=== PATIENT | female | born 1960 | race Caucasian/White ===

== ENCOUNTER 2024-12-05 10:30 | Emergency (ER) | payer MEDICARE, BC, SELFPAY ==
--- NOTE | 2024-12-05 10:38 | ED_ITS ---
HPI - Ear Problem General Chief complaint: Ear Stated complaint: RT Ear Pain Time Seen by Provider: 12/05/24 10:36 Source: patient Mode of arrival: ambulatory Limitations: no limitations History of Present Illness HPI Narrative: Here for right ear pain. She reports a history of 1.5 days of right ear pressure. She also reports feeling muffled hearing in the right ear. She has a history of bilateral ear tubes placed about 1 and half years years ago. She reports having a right-sided headache yesterday. She no longer has a headache. She also reports history of a recent right tonsil stone over the last several days. She denies any fever. She denies any nausea vomiting. She denies any cough or congestion. She reports recently coming to town to take care of a sick parent. Related Data Home Medications ?Medication ?Instructions ?Recorded ?Confirmed ?Last Taken ?Type escitalopram oxalate 10 mg tablet mg 12/05/24 Unknown History omeprazole 20 mg capsule,delayed mg 12/05/24 Unknown History release trazodone 150 mg tablet mg 12/05/24 Unknown History Allergies Allergy/AdvReac Type Severity Reaction Status Date / Time No Known Allergies Allergy Verified 12/05/24 10:41 Review of Systems Review of Systems: CONSTITUTIONAL: Denies fever, chills, or sweats. EYES: Denies visual changes, redness, or discharge. ENT: Denies rhinorrhea or congestion. Denies otalgia, and reports instead feeling ear pressure. Reports recent tonsil stone on right. CARDIOVASCULAR: Denies chest pain, palpitations, or edema. RESPIRATORY: Denies cough or dyspnea. GASTROINTESTINAL: Denies abdominal pain, nausea, vomiting, or diarrhea. GENITOURINARY: Denies dysuria or hematuria. SKIN: Denies rash or itching. MUSCULOSKELETAL: Denies back pain, joint pain, or myalgia. NEUROLOGIC: Denies numbness or weakness. Reports headache yesterday, but denies ONEILL today. PSYCHIATRIC: Denies anxiety or depression. All other systems reviewed are negative, except as documented in HPI. Exam Narrative: GENERAL: This is a well-nourished, well-developed patient, in no apparent distress. HEAD: normocephalic, atraumatic. EYES: Sclera clear/white. EARS: External ears normal, auditory canals clear and without drainage, TMs opacified with bilateral TM tubes in place. +Clear fluid behind ear drums bilaterally. NOSE: External nose normal with no obvious nasal discharge, nares without redness, no rhinorrhea. THROAT: Mucous membranes moist, posterior pharynx clear. NECK: Trachea midline. CARDIOVASCULAR: Regular rate and rhythm without murmurs, gallops, or rubs. RESPIRATORY: Clear to auscultation. Breath sounds equal bilaterally. No wheezes, rales, or rhonchi. SKIN: warm, Dry, intact with no suspicious lesions or rash, good texture and tur gor. NEURO: awake, alert, and oriented to person, place and time. There were no obvious focal neurologic abnormalities. EXTREMITIES: No joint tenderness, effusion, or edema noted. Course Course Emergency Course: Patient is aware of diagnosis, understands and agrees to treatment plan. Anticip atory guidance was given. Patient agrees to follow-up as directed and is aware of reasons to seek care at the emergency department. Level of Care: Express Care Visit Vital Signs Vital signs: Vital Signs Temperature 36.2 C L 12/05/24 10:41 Pulse Rate 73 12/05/24 10:41 Respiratory Rate 18 12/05/24 10:41 Blood Pressure 121/78 12/05/24 10:41 Pulse Oximetry 99 12/05/24 10:41 Oxygen Delivery Room Air 12/05/24 10:41 Temperature 36.2 C L 12/05/24 10:41 Pulse Rate 73 12/05/24 10:41 Respiratory Rate 18 12/05/24 10:41 Blood Pressure 121/78 12/05/24 10:41 Pulse Oximetry 99 12/05/24 10:41 Oxygen Delivery Room Air 12/05/24 10:41 Reviewed. Medical Decision Making MDM Narrative Medical decision making narrative: Here with ear pressure. TM is opacified with no erythema or edema. No fevers. Bilateral TM tubes in place. +Fluid level behind TMs. Vital Signs Vital Signs: Vital Signs Temperature 36.2 C L 12/05/24 10:41 Pulse Rate 73 12/05/24 10:41 Respiratory Rate 18 12/05/24 10:41 Blood Pressure 121/78 12/05/24 10:41 Pulse Oximetry 99 12/05/24 10:41 Oxygen Delivery Room Air 12/05/24 10:41 Temperature 36.2 C L 12/05/24 10:41 Pulse Rate 73 12/05/24 10:41 Respiratory Rate 18 12/05/24 10:41 Blood Pressure 121/78 12/05/24 10:41 Pulse Oximetry 99 12/05/24 10:41 Oxygen Delivery Room Air 12/05/24 10:41 Discharge Plan Discharge Clinical Impression: Allergic rhinitis Qualifiers: Allergic rhinitis trigger: unspecified Allergic rhinitis seasonality: seasonal Qualified Code(s): J30.2 - Other seasonal allergic rhinitis Patient Disposition: Home Condition: Stable Instructions: Antibiotic Form, Allergies (ED) Additional Instructions: You were diagnosed today with allergy symptoms. Start an oral antihistamine such as Zyrtec as directed on the packaging. You can also add daily Flonase as directed on the packaging. Both of these medications are available over the counter. Take medications as recommended today.? Follow printed instructions provided. Follow-up with primary care provider. Go to the ER for any worsening symptoms or concerns. 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
[2024-12-05 10:41] VITALS: BP 121/78; PULSE 73; RESP 18; TEMP 36.2; O2SAT 99
--- OUTSIDE RECORDS SUMMARY | 2024-12-05 11:55 | XMS_ITS ---
Author Organization [facility] Address [address] [place] [address] Care Team Providers Care Regulatory Product Manager Name Role Phone Jordan Christopher Primary Care Provider REASON FOR VISIT Cancel Appointment Request Encounters Encounter Location Date Provider Diagnosis [facility] [address] [place] [address] 12/04/2024 Jordan Christopher Plan Of Treatment Next Appt Details Provider Name:Jordan wadsworth, 01/02/2025 08:30:00 AM, [address] [place], [address], Provider Name:Jordan Kapadia Silvana wadsworth, 01/02/2025 11:00:00 AM, [address] [place], [address], Progress Notes * Alexandra WHEELER LDOB:[birth year] (64 yo F)Acc No.[id number]:12/04/2024 Patient: Aamir STARRAlexandra :1960 A ge:64 Y S ex:Female Address:[address] [place], [address] * true * Date: Generated for Printi ng/Faxing/eTransmitting on: 0 12/05/2024 11:55 AM CDT
--- OUTSIDE RECORDS SUMMARY | 2024-12-05 11:55 | XMS_ITS ---
Author Organization [facility] Address [address] [place] [address] Care Team Providers Care Aeronautical Test Engineer Name Role Phone Jordan Christopher Primary Care Provider REASON FOR VISIT r/s px-e Encounters Encounter Location Date Provider Diagnosis [facility] [address] [place] [address] 12/04/2024 Jordan Christopher Plan Of Treatment Next Appt Details Provider Name:Jordan wadsworth, 01/02/2025 08:30:00 AM, [address] [place], [address], Provider Name:Jordan wadsworth, 01/02/2025 11:00:00 AM, [address] [place], [address], Progress Notes * Alexandra WHEELER LDOB:[birth year] (64 yo F)Acc No.[id number]:12/04/2024 Patient: Aamir STARRAlexandra :1960 A ge:64 Y S ex:Female Address:[address] [place], [address] * true * Date: Generated for Printi ng/Faxing/eTransmitting on: 0 12/05/2024 11:55 AM CDT
--- OUTSIDE RECORDS SUMMARY | 2024-12-05 11:55 | XMS_ITS | Patient Health Record ---
Author Organization [facility] Address [address] [place] [address] Care Team Providers Care Drug Clerk Name Role Phone Jordan Christopher Primary Care Provider Enrico Alexandre Unavailable [phone] Gume Lim Unavailable [phone] Allergies No Known Allergies Results Component Value Reference Range Notes Urine Dipstick w/ microscopi c for symptoms Reviewed date:04/25/2024 09:24:07 AM Interpretation: Performing Lab:[address] [place] [address] [facility] Notes/Report: NONFASTING MG : 3D screening Bilateral Reviewed date:12/09/2023 10:04:25 AM Interpretation: Performing Lab: Notes/Report: TSH Reviewed date:12/10/2023 02:16:56 PM Interpretation: Performing Lab:[address] [place] [address] [facility] Notes/Report: FASTING LIPID PROFILE Reviewed date:12/10/2023 02:16:56 PM Interpretation: Performing Lab:[address] [place] [address] [facility] Notes/Report: FASTING COMPREHENSIVE PROFILE Reviewed date:12/10/2023 02:16:56 PM Interpretation: Performing Lab:[address] [place] [address] LAB Notes/Report: FASTING eGFR RESULTS NOT VALID FOR 17 YEARS OF AGE AND UNDER CBC (w/diff or w/auto diff) Reviewed date:12/10/2023 02:16:56 PM Interpretation: Performing Lab:[address] [place] [address] LAB Notes/Report: FASTING Urine Culture #[id number] Reviewed date:04/25/2024 09:24:07 AM Interpretation: Performing Lab:[facility] [id number] Notes/Report: Culture shows less than 10,000 colony forming units of bacteria per NONFASTING milliliter of urine. This colony count is not generally considered to be clinically significant. Result 1 Comment Urine Culture, Routine Final report Urine Dipstick w/ microscopi c for symptoms Reviewed date:04/11/2024 02:15:04 PM Interpretation: Performing Lab:[address] [place] [address] LAB Notes/Report: NONFASTING Urine Culture #[id number] Reviewed date:04/15/2024 05:47:01 PM Interpretation: Performing Lab:[id number] Notes/Report: S = Susceptible; I = Intermediate; R = Resistant Cefazolin <=4 ug/mL NONFASTING P = Positive; N = Negative Cefazolin with an NORMA <=16 predicts susceptibility to the oral agents MICS are expressed in micrograms per mL cefaclor, cefdinir, cefpodoxime, cefprozil, cefuroxime, cephalexin, Antibiotic RSLT#1 RSLT#2 RSLT#3 RSLT#4 and loracarbef when used for therapy of uncomplicated urinary tract Amoxicillin/Clavulanic Acid S infections due to E. coli, Klebsiella pneumoniae, and Proteus Ampicillin R mirabilis. Cefepime S Greater than 100,000 colony forming units per mL Ceftriaxone S Cefuroxime S Ciprofloxacin S Ertapenem S Gentamicin S Imipenem S Levofloxacin S Meropenem S Nitrofurantoin S Piperacillin/Tazobactam S Tetracycline S Tobramycin S Trimethoprim/Sulfa S Antimicrobial Susceptibility Comment Result 1 Klebsiella pneumoniae Urine Culture, Routine Final report Reason For Referral Reason NCT/EMG left upper e xtremity Diagnosis 1 Hand numbness (R20.0 ) Referral Organization [facility] Referring Provider First Name Jordan Referring Provider Last Name Mable ralph Referring Provider Speciality Family Med icine Referred Provider Justin West Referred Provider Specialty Physical Med icine and Rehabilitation Clinical Notes Chaya Sterling 10:07:55 AM >Order, demographic information, ins card copy faxed to Dr. West office. Referral Priority Routine Reason call 01/11 faxed 01/04 EVAL AND TREAT [facility] - Insurance referral not required - ADW 01/12/2024 Diagnosis 1 Carpal tunnel syndro me, left (G56.02) Diagnosis 2 Ulnar nerve compress ion, left (G56.22) Referral Organization [facility] Referring Provider First Name Jordan Referring Provider Last Name Mable loree Referring Provider Speciality Family Med benjamin Referred Provider Prince Rodriguez Referred Provider Specialty Orthopedic S urgery General Notes Libia Carreno 02:28:08 PM >[employer] - Insurance referral not required Clinical Notes Romelia Clark 02:13:59 PM >Referral faxed to [phone]., Romelia Clark 01/12/2024 02:20:51 PM >LVM for pt providing Dr. Frias's contact information to call and schedule appt. Referral Priority Routine Medications Medication SIG (Take, Route, Frequency, Duration) Notes Start Date End Date Status Ciprofloxacin HCl 500 MG 1 tablet Orally every 12 hrs for 7 days 04/11/2024 Active Calcium + D3 TAKE DIRECTED 1 tablet with a meal Orally Once a day Active Turmeric 450 mg 1 PO Qd Acti ve Escitalopram Oxalate 10 MG TAKE 1 TABLET BY MOUTH DAILY for 90 Active Estradiol 0.1 MG/GM APPLY VAGINALLY THRE E TIMES PER WEEK for 90 Active traZODone HCl 150 MG TAKE A HALF TABLET BY MOUTH DAILY for 90 Active Gentamicin Sulfate 0.3 % 1 drop into aff ected eye Ophthalmic every 4 hrs for 5 days 02/12/2024 Active Atorvastatin Calcium 20 MG TAKE 1 TABLET BY MOUTH DAILY for 30 days Active Omeprazole 20 MG TAKE ONE TO TWO CAPS ULES BY MOUTH EVERY DAY for 45 Active Immunizations Vaccine Route Administration Date Status Comme nts Influenza IM Intramuscular 06/11/2020 Administered Social History Tobacco Use: Social History Observation Description Date Details (start date - stop date) Never Smoker NA - NA Tobacco Use/Smoking Question Answer Notes Status: nonsmoker Problems Problem Type SNOMED Code ICD Code Onset Dates Problem Status W/U Status Risk Notes Problem 94311649 Dysuria (R30.0) Active confirmed Problem Hyperlipidemia (76979253) Hyperlipidemia (E78.5) Active confirmed Problem Anxiety disorder (707638852) Anxiety disorder (F41.9) Active confirmed Problem Polyp of colon (disorder) (76759762) Colon polyps (K63.5) Active confirmed Problem Hearing loss (08598303) Decreased hearing of both ears (H91.93) Active confirmed Problem 178493914 Elevated alkalin e phosphatase level (R74.8) Active confirmed Problem Solitary pulmonary nodule (500457812) Pulmonary nodule, right (R91.1) Active confirmed Problem 018353495019200 Carpal tunnel syndrome, left (G56.02) Active confirmed Problem Atrophy of vagina (065087916) Vaginal atrophy (N95.2) Active confirmed Problem 117520340 Gall stones (K80.20) Active confirmed Problem 942353480 Bacterial conjunctivitis (H10.9) Active confirmed Problem Diverticulitis of colon (790658942) Acute diverticulitis (K57.92) Active confirmed Problem Bilateral hearing loss (46342454) Hearing loss associated with syndrome of both ears (H91.8X3) Active confirmed Problem 09254323 Loss of smell (R43.0) Active confirmed Problem 513903416047403 Ulnar nerve compression, left (G56.22) Active confirmed Problem COVID-19 (026908515) COVID-19 (U07.1) Active confirmed Vital Signs Heart Rate 87 /min 04/11/2024 Blood pressure diastolic 76 mm Hg 04/11/2024 Oximetry 98 % 04/11/2024 Height 60 in 04/11/2024 Blood pressure systolic 124 mm Hg 04/11/2024 Weight 157.6 lbs 04/11/2024 BMI 30.78 kg/m2 04/11/2024 Encounters Encounter Location Date Provider Diagnosis [facility] [address] [place] [address] 01/05/2024 Jordan Christopher [facility] [address] [place] [address] 03/10/2024 Jordan Christopher [facility] [address] [place] [address] 04/15/2024 Jordan Christopher Dysuria R30.0 [facility] [address] [place] [address] 01/07/2024 Jordan Christopher [facility] [address] [place] [address] 02/17/[address] [facility] [address] [place] [address] 02/17/[address] [facility] [address] [place] [address] 02/17/[address] [facility] [address] [place] [address] 02/17/[address] [facility] [address] [place] [address] 04/11/[address] [facility] [address] [place] [address] 04/11/2024 Jordan Christopher [facility] [address] [place] [address] 12/04/2024 Jordan Christopher [facility] [address] [place] [address] 12/04/[address] [facility] [address] [facility] [place] [address] 12/04/2024 Jordan Christopher [facility] [address] [place] [address] 12/04/2024 Jordan Christopher [facility] [address] [place] [address] 12/09/2023 Jordan Christopher Wellness examinatio n Z00.00 ; Hand numbness R20.0 and Dupuytren's contracture of both hands M72.0 [facility] [address] [place] [address] 04/11/2024 Jordan Christopher Dysuria R30.0 [facility] [address] [place] [address] 04/21/2024 Jordan Christopher Dysuria R30.0 [facility] [address] [place] [address] 12/09/2023 Jordan Silvanaermelinda Breast cancer screening Z12.31 [facility] [address] [place] [address] 02/12/2024 Gume Lim Bacterial conjunctivitis H10.9 [facility] [address] [place] [address] 02/09/2024 Enrico Alexandre Assessments Encounter Date Diagnosis (ICD Code) Assessment Notes Treatment Notes Treatment Clinical Notes Section Notes 12/09/2023 Wellness examination (ICD-10 - Z00.00) continue with healthy diet and regular exercise activity. Discussed weight loss and she is going to work on this. Also she is up-to-date on her screening colonoscopy and is getting her screening mammogram today. She has had her shingles vaccine and said even had a pneumonia vaccine maybe 3 years ago but thought she had a reaction to 12/09/2023 Hand numbness (ICD-10 - R20.0) patient with numbness in her left thumb and index finger that is getting more persistent over the last 6 weeks. No known injury. She does have history of Dupuytren's contractures of both hands. Will go ahead and get NCT and a electromyelogram of the left upper extremity. Also discussed referral to Orthopedics for discussion on her Dupuytren's as some new treatments have emerged 12/09/2023 Breast cancer screening (ICD-10 - Z12.31) 02/12/2024 Bacterial conjunctivitis (ICD-10 - H10.9) Will treat with gentamicin eye drops. Pt to f/u PRN 04/11/2024 Dysuria (ICD-10 - R30.0) continue to push fluids. Will await urine culture. Discussed if she has 6 episodes in the next year that this could be an indication for preventative medications and will readdress in the future if needed. Meanwhile since she said most of these occur after intercourse to make sure she is getting up and urinating afterwards and make sure she drinks plenty of fluids 04/15/2024 Dysuria (ICD-10 - R30.0) 04/21/2024 Dysuria (ICD-10 - R30.0) 12/09/2023 Dupuytren's contracture of both hands (ICD-10 - M72.0) Plan Of Treatment Pending Test Test Name Order Date MG : 3D screening Bilateral 08/12/2021 Next Appt Details Provider Name:Jordan wadsworth, 01/02/2025 08:30:00 AM, [address] [place], [address], Provider Name:Jordan wadsworth, 01/02/2025 11:00:00 AM, [address] [place], [address], Insurance Providers Payer Name Payer Address Payer Phone Subscriber Number Group Number Insured Name Patient Relationship to Insured Coverage Start Date Coverage End Date [facility] [address] [place] [address] [phone] [id number] Toan Wheeler Spouse - patient is the spouse of the insured 0 Medications Administered Medication Instructions Date of Administration Dosage Notes DEPO-Medrol 02/09/2024 120 mg Medical (General) History Medical History History ICD Code Hyperlipidemia gastroesophogeal reflux disease colon polyp-last colonoscopy was 2014 surgical removed/donated left kidney anxiety disorder insomnia diverticulitis Surgical History Surgery Date(Month/Year) left nephrectomy for donation 2009 TOTAL KNEE REPLACEMENT 2011 PARTIAL HYSTERECTOMY 2018 Colonoscopy,,polyp x1,repeat in 5 years 08/05
--- OUTSIDE RECORDS SUMMARY | 2024-12-05 11:55 | XMS_ITS | Data Portability ---
Author Organization [facility] - Dermatology [facility] OFFICE Address [address] [facility] [address] [place] [address] Assessment Encounter Date Assessment Date Assessment LastModified by Organization Details LastModified Time 05/20/2021 05/20/2021 1. Photoaging of skin, benign nevi, seborrheic keratosis, ochoa angiomas - No atypia seen on exam. Continue sun protection/sun screen use, monthly self skin exams, and report changes. Follow up in one year, sooner if needed. [email or web address] Not available 05/20/2021 10:19:57 05/20/2022 05/20/2022 1. Photoaging of skin, benign nevi, seborrheic keratosis, ochoa angiomas - No atypia seen on exam. Continue sun protection/sun screen use, monthly self skin exams, and report changes. 2. Irritated skin tags - Treatment options with possible adverse effects were discussed. Patient would like to proceed with cryotherapy. 2 lesions were treated with liquid nitrogen. Follow up in 4 weeks if retreatment is needed. Follow up in one year, sooner if needed. Not available 05/20/2022 10:18:00 05/25/2023 05/25/2023 1. Photoaging of skin, benign nevi, seborrheic keratosis, ochoa angiomas - No atypia seen on exam. Continue sun protection/sun screen use, monthly self skin exams, and report changes. Follow up in one year, sooner if needed. Not available 05/25/2023 09:17:00 02/29/2024 02/29/2024 1. Photoaging of skin - Continue sun protection/sun screen use, monthly self skin exams, and report changes. 2. Comedones - Benign lesions, reassurance was given. Treatment options were discussed. Patient prefers to continue observation for changes and will notify our office if she would like extractions. Patient has routine annual skin exam on 05-30-24, sooner if needed. [email or web address] Not available 03/02/2024 15:53:55 05/30/2024 05/30/2024 1. Photoaging of skin, benign nevi, seborrheic keratosis, ochoa angiomas - No atypia seen on exam. Continue sun protection/sun screen use, monthly self skin exams, and report changes. 2. Actinic keratosis - 1 lesion located on right forehead was treated with liquid nitrogen. Reviewed possible adverse effects of treatment. Continue sunscreen use/sun protection as directed. Follow up in one year, sooner if needed. Not available 05/30/2024 09:16:43 Plan of Treatment Reminders Order Date Submit Date Provider Last Modified By Organization Details Last Modified Time Details Appointments ESTABLISH ED PATIENT 10 2024 08:00A M JUDY Gonzalez Not available Not available Not available Lab None recorded. Referral None recorded. Procedures None recorded. Surgeries None recorded. Imaging None recorded. Medication Orders None recorded. Patient TargetsNo targets recorded. Patient InstructionsNo instructions recorded. Reason for Referral None Reported. Problems No Known Problems Procedures Surgical History Date Name Laterality Status Provider Name and Address Organization Details Recorded Time 04/04/20 19 DS Direct [id number] consultation [facility] 04/04/2019 13:53:03 04/02/20 18 DS Surgery - Shave - [facility] 04/02/2018 16:52:39 Joint Replacement or Orthopedic Procedure/Surger y completed Sarah Oneill [facility] 03/30/2017 15:53:47 Remove kidney open [facility] 04/02/2018 16:48:21 Knee arthroscopy/surg selena [facility] 04/02/2018 16:48:39 Unlisted px hands/fingers [facility] 04/02/2018 16:48:46 Unlisted px foot/toes completed [facility] [place] - [facility] 04/02/2018 16:48:54 Imaging Results None recorded. Procedure Notes None recorded. Medical Equipment None Reported. Allergies No known drug allergies Medications Name Sig Start Date Stop Date Status Note LastModified by Organization Details LastModified Time cyclobenzaprine 10 mg tablet active Not Available Not Available Not Available amoxicillin 500 mg capsule active Not Available Not Available N ot Available prednisone 10 mg tablet active Not Available Not Available Not Available atorvastatin 20 mg tablet active Not Available Not Available No t Available azithromycin 250 mg tablet active Not Available Not Available No t Available fluconazole 150 mg tablet active Not Available Not Available No t Available hydrocodone 5 mg-acetaminophen 325 mg tablet active Not Available Not Availabl e Not Available prednisone 20 mg tablet active Not Available Not Available Not Available niacin ER 500 mg tablet,extended release 24 hr active Not Available Not Availabl e Not Available metronidazole 500 mg tablet active Not Available Not Availabl e Not Available ciprofloxacin 500 mg tablet active Not Available Not Availabl e Not Available sulfamethoxazole 800 mg-trimethoprim 160 mg tablet active Not Available Not Availabl e Not Available hydrocodone 10 mg-acetaminophen 325 mg tablet active Not Available Not Availabl e Not Available spironolactone 25 mg tablet active Not Available Not Available Not Available bupropion HCl 100 mg tablet 04/04 completed Not Available Not Available Not Available gentamicin 0.3 % eye drops active Not Available Not Available No t Available baclofen 10 mg tablet active Not Available Not Available Not Available cephalexin 500 mg capsule active Not Available Not Available N ot Available trazodone 150 mg tablet active Not Available Not Available Not Available polymyxin B sulfate 10,000 unit-trimethopri m 1 mg/mL eye drops 04/04 completed Not Available Not Available Not Available omeprazole 20 mg capsule,delayed release active Not Available Not Available Not Available estradiol 0.01% (0.1 mg/gram) vaginal cream active Not Available Not Availabl e Not Available methylprednisolo ne 4 mg tablets in a dose pack active Not Available Not Availab le Not Available albuterol sulfate HFA 90 mcg/actuation aerosol inhaler active Not Available Not Availa ble Not Available ondansetron 4 mg disintegrating tablet active Not Available Not Available Not Available cefdinir 300 mg capsule active Not Available Not Available Not Available amoxicillin 875 mg-potassium clavulanate 125 mg tablet active Not Available Not Available No t Available neomycin-polymyx in-hydrocort 3.5 mg-10,000 unit/mL-1 % ear drops,susp active Not Available Not Available N ot Available escitalopram 10 mg tablet active Not Available Not Available No t Available escitalopram 20 mg tablet 04/04 completed Not Available Not Available Not Available Premarin 0.625 mg/gram vaginal cream active Not Available Not Available Not Available nitrofurantoin monohydrate/macr ocrystals 100 mg capsule active Not Available Not Available Not Available aspirin active Not Available Not Avail able Not Available Fish Oil active Not Available Not Avai lable Not Available diclofenac 1 % topical gel active Not Available Not Available Not Available Fluarix Quad 4676-3312 (PF) 60 mcg (15 mcg x 4)/0.5 mL IM syringe 04/04 completed Not Available Not Available Not Available Vitals Date Recorded Body height Body mass index (BMI) Body weight Provider Name and Address Organization Details Last Updated DateTime 05/30/2024 153.67 cm 28.8 kg/m2 40129.86 g [facility] 05/30/2024 09:06:16 Social History None recorded. Functional Status None recorded. Mental Status None recorded. Family History Relationship Description Onset Age of this Age Resolved Age Notes LastModified by Organization Details LastModified Time Mother Basal cell carcinoma of skin tschrandt Not available 2017 16:47:51 Medical History Condition Response GERD/Acid Reflux/Indigestion Y Allergy - Reaction to Adhesives Y Lipid Disorder/Hyperlipidemia/High Shayla sterol Y Gynecological HistoryNo gynecological history recorded. Obstetrics History GPAL:G 0 P 0 0 0 0 Past Encounters Encounter ID Performer Location Encounter Start Date Encounter Closed Date Diagnosis/Indication Diagnosis SNOMED-CT Code Diagnosis ICD10 Code Diagnosis Note [id number] Nicole Morgan [facility] [address] [address] 03/26/2017 15:13:18 03/26/2017 15:55:50 [id number] Lisa Menendez [facility] [address] [address] 04/02/2018 09:41:44 04/02/2018 10:46:59 Skin - benign mole and nevus 139462684 D22.9 [id number] [address] [address] 04/04/2019 09:49:31 04/04/2019 10:15:02 [id number] [address]y [address] [place] [id number] 05/14/2020 09:53:04 05/14/2020 10:12:53 [id number] [facility] [address] [place] [address] 12/20/2020 09:01:08 12/27/2020 14:30:36 Alopecia 57123682 L65.9 [id number] Korey [address] [place] [id number] 05/20/2021 09:47:12 05/20/2021 10:02:47 [id number] [address]y [address] [place] [id number] 05/20/2022 09:42:55 05/20/2022 10:22:56 [id number] [address] [place] [id number] 05/25/2023 08:49:44 05/26/2023 13:31:15 [id number] [address] [place] [address] 02/29/2024 14:35:04 03/03/2024 10:27:34 [id number] [address] [place] [address] 05/30/2024 08:54:26 05/31/2024 11:23:26 Health Concerns Section Related Observation LastModified by Organization Detai ls LastModified Time None Recorded Concern Status LastModified by Organization Details LastModified Time None Recorded Advance Directives Directive None Recorded Payers Encounter Date Sequence Insurance Name Policy Number Policy Garcia Covered Member ID Garcia Member ID Guarantor Name 05/20/2021 1 [place] [place] [facility] EMPL[employer]EE PROGRAM (O) 113 Toan D Summer [id number] Alexandra L Summer 05/20/2022 1 [place] [place] [facility] [employer]EE [employer] (PPO) 113 Toan D Summer [id number] Alexandra L Summer 05/25/2023 1 [place] [place] [facility] [employer]EE PRO[employer] (PPO) 113 Toan D Summer [id number] Alexandra L Summer 02/29/2024 1 [place] [place] [facility] [employer]EE PRO[employer] (PPO) 113 Toan D Summer [id number] Alexandra L Summer 05/30/2024 1 [place] [employer] [place] [facility] [employer]EE PRO[employer] (PPO) 113 Toan D Summer [id number] Alexandra L Summer Notes Date Note Type Note Provider Name and Address Organization Details Recorded Time 05/20/2021 text/html 60 year old female presents today for her yearly skin exam. No personal or family history of skin cancer. No other skin concerns. Korey Lucas[address], [address], [facility] 05/20/2021 10:20:11 05/20/2022 text/html 61 year old female presents today for her yearly skin exam. The patient has irritated skin tags under her left armpit she would like treated. Lesions have grown thicker over time, itch, and catch on clothing causing soreness. No personal or family history of skin cancer. No other skin concerns. [facility] [address] [place], [address], [facility] 05/20/2022 10:23:39 05/25/2023 text/html 62 year old female presents today for her yearly skin exam. She has a thickened patch on her mid back and would like evaluation. It does not bother her, she just cannot see it. No personal or family history of skin cancer. No other skin concerns. Korey Lucas MARIANAUMA [address] [place], [address], [facility] 05/25/2023 09:31:05 02/29/2024 text/html 63 year old female here for an evaluation of itchy spots on her back. She states that she has had these for several months around her bra strap. She states that these spots may have decreased in size, but remain itchy. The patient also has a growing scaly spot on her left denominational. No personal or family history of skin cancer. No other skin concerns. Arabellag Sonu Clark MARIANA Lucas [address] [place], [address], [facility] 03/02/2024 15:53:59 05/30/2024 text/html 63 year old female presents today for her yearly skin exam. No personal or family history of skin cancer. No other skin concerns. Arabellag Sonu Lucas JUDY [address] [place], [address], [facility] 05/30/2024 09:22:25 OBGyn Episode No OBEpisode recorded.
--- OUTSIDE RECORDS SUMMARY | 2024-12-05 11:55 | XMS_ITS ---
Author Organization [facility] Address [address] [place] [address] Care Team Providers Care Mobile Home Set Up Person Name Role Phone Jordan Christopher Primary Care Provider [phone] REASON FOR VISIT Cancel Appointment Request Encounters Encounter Location Date Provider Diagnosis [facility] [address] [place] [address] 12/04/2024 Jordan Christopher Plan Of Treatment Next Appt Details Provider Name:Jordan wadsworth, 01/02/2025 08:30:00 AM, [address] [place], [address], Provider Name:Jordan Kapadia Silvana wadsworth, 01/02/2025 11:00:00 AM, [address] [place], [address], Progress Notes * Alexandra WHEELER LDOB:[birth year] (64 yo F)Acc No.[id number]:12/04/2024 Patient: Aamir STARRAlexandra :1960 A ge:64 Y S ex:Female Address:[address] [place], [address] * true * Date: Generated for Printi ng/Faxing/eTransmitting on: 0 12/05/2024 11:55 AM CDT
--- OUTSIDE RECORDS SUMMARY | 2024-12-05 11:56 | XMS_ITS | Data Portability ---
Author Organization [facility] Tyron Dela Cruz, Main Office Address [address] [place] [address] Care Team Providers Care Forming Fixer Name Role Phone HANANE [email or web address] Primary Care Provid er Assessment Encounter Date Assessment Date Assessment LastModified by Organization Details LastModified Time 09/15/2024 09/15/2024 Alexandra 64 year old female has Insertional patellar tendonitis and distal IT band tendonitis. She was informed to use a cryosphere roller and physical therapy. She will f/u as needed. [email or web address] Not available 09/15/2024 17:04:18 Plan of Treatment Reminders Order Date Submit Date Provider Last Modified By Organization Details Last Modified Time Details Appointments None recorded. Lab None recorded. Referral physical therapist referral 2024 025 [email or web address] Not available 17:32:34 Procedures None recorded. Surgeries None recorded. Imaging XR, knee, 4 or more view 2024 025 [email or web address] [facility], [address] [place], [address], 5 17:32:34 Medication Orders None recorded. Patient TargetsNo targets recorded. Patient InstructionsNo instructions recorded. Reason for Referral Physical Therapist Referral for Pain of right knee joint Referring Physician: Robert Santiago, Orthopedic Surgery-Adult Reconstructive, [id number] Encounter Date: 09/15/2024 Results Created Date Observation Date Name Description Value Unit Range Abnormal Flag Note LastModifiedBy Organization Detail LastModifiedTime 09/15/19 25 XR, knee, 4 or more view No observ ation record ed. [email or web address] [facility] [address] [place], [address], 09/15/2024 16:42:45 Result Notes None recorded. 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 2020 [facility] Problem Code: M19.041; Problem Code Type: ICD-10; Not Available [facility] 04:37:06 Pain in right hand 36230921339 9109 Active 2020 [facility] Problem Code: M79.641; Problem Code Type: ICD-10; Not Available [facility] 04:[facility]06 Primary apnea in the 375416045 Active 2018 Problem Code: 770.81; Problem Code Type: ICD-9; Not Available [facility] 04:37:06 Snoring 41535435 Active 2018 ProblemCo de: '786.09'; ProblemCo deType: 'ICD-9'; Not Available [facility] 04:37:06 Strain of back muscle 313596604 Active 2019 [facility] ProblemCo de: 'S39.012D '; ProblemCo deType: 'ICD-10'; Not Available [facility] 04:37:07 Pain of left knee joint 74017564194 4107 Active 2024 DEEPAK monreal [facility] 5 16:21:46 Pain of right knee joint 74879670367 4100 Active 2024 DEEPAK monreal [facility] 5 16:23:15 Iliotibia l band friction syndrome 131193720 Active 2024 DEEPA[place] Beard [facility] 5 17:44:35 Tendiniti s of right patellar tendon 38457263098 9109 Active 2024 Niki Miguellibby khan [place] - [facility] 17:44:37 Problem Notes None recorded. Procedures Surgical History None recorded. Imaging Results Imaging Date Name Status LastModified by Organiz ation Details LastModified Time 09/15/2024 XR, knee, 4 or more view completed [email or web address] [facility] [address], [place], [place], [address], 09/15/2024 16:42:45 Procedure Notes None recorded. Medical Equipment None Reported. Allergies No known drug allergies Medications Name Sig Start Date Stop Date Status Note LastModified by Organization Details LastModified Time atorvastat in 20 mg tablet Route : oral active Not Available Not Available No t Available metronidaz ole 500 mg tablet 09/15 completed Not Available Not Available Not Available ciprofloxa richard 500 mg tablet 09/15 completed Not Available Not Available Not Available oxycodone- acetaminop hen 5 mg-325 mg tablet 09/15 completed Not Available Not Available Not Available gentamicin 0.3 % eye drops 09/15 completed Not Available Not Available Not Available cephalexin 500 mg capsule 09/15 completed Not Available Not Available Not Available trazodone 150 mg tablet active 1/2 t qhs Not Available Not Available No t Available omeprazole 20 mg capsule,de layed release active Not Available Not Available Not Available estradiol 0.01% (0.1 mg/gram) vaginal cream active Not Available Not Available Not Available cefdinir 300 mg capsule 09/15 completed Not Available Not Available Not Available escitalopr am 10 mg tablet active Not Available Not Available Not Available Fish Oil 1,000 mg capsule Route : oral 09/15 completed Added from IPad history form Not Available Not Available Not Available niacin (inositol niacinate) 500 mg capsule Route : oral 09/15 completed Added from IPad history form Not Available Not Available Not Available Adult Aspirin Regimen 81 mg tablet,del ayed release Route : oral 09/20 completed Added from IPad history form Medication discontinu ed during reconcilia tion by Jie Gonzalez on September 10:17 AM Not Available Not Available Not Available Vitals Date Recorded Body height Body mass index (BMI) Body weight Provider Name and Address Organization Details Last Updated DateTime 09/15/2024 152.4 cm 31.2 kg/m2 [address] [facility] 09/15/2024 16:13:21 Social History Question Answer Notes LastModified by [employer] Details LastModified Time Tobacco Smoking Status Former Smoker shea cortez erin [facility] 09/15/2024 16:14:55 Do You Have An Advance Directive? Yes [email or web address] Information not available 09/09/2024 What Is Your Level Of Alcohol Consumption? Occasional [email or web address] Information not available 09/09/2024 Are You Currently Employed? No [email or web address] Information not available 09/09/2024 Do You Or Have You Ever Used E-cigarettes Or Vape? Never Used Electronic Cigarettes [email or web address] Information not available 09/09/2024 How Many Days Of Moderate To Strenuous Exercise, Like A Brisk Walk, Did You Do In The Last 7 Days? 2 [email or web address] Information not available 09/09/2024 Which Of Your Hands Is Dominant? Right [email or web address] Information not available 09/09/2024 Do You Have A Medical Power Of Shipping And Receiving? Yes [email or web address] Information not available 09/09/2024 Do You Or Have You Ever Used Smokeless Tobacco? Never Used Smokeless Tobacco [email or web address] Information not available 09/09/2024 Do You Use Any Illicit Or Recreational Drugs? No [email or web address] Information not available 09/09/2024 Has Tobacco Cessation Counseling Been Provided? No [email or web address] Information not available 09/09/2024 Sex: Unknown Functional Status Question Answer Note LastModified by [employer] Details LastModified Time Do you have difficulty walking or climbing stairs? Yes [email or web address] Information not available 09/09/2024 Do you have transportation difficulties? No [email or web address] Information not available 09/09/2024 Are you able to walk? YESWOREST [email or web address] Information not available 09/15/2024 Are you able to care for yourself? Yes [email or web address] Information not available 09/09/2024 Do you have difficulty dressing or bathing? No [email or web address] Information not available 09/09/2024 What is your exercise level? None [email or web address] Information not available 09/09/2024 Mental Status None recorded. Family History Nothing Reported. Medical History Condition Response Coronary Artery Disease N Anxiety/Depression Y Other N Gout N MRSA N Blood Transfusion N Head Trauma/Injury N Hernia N heart arrhythmia N COPD N Lung Disease N Pacemaker N Vascular Disease N Patient denies any past medical history. N Anesthesia Complications N Varicose Veins N Autoimmune disease N Orthotics N Arthritis Y Head Injury/Concussion N Blood Clot N Acid Reflux (GERD) Y Maravilla Bite N Cancer N Stroke N Leg or Foot Ulcers N Alcohol Overuse/Alcohol Abuse N Neurologic Disorder N Liver Disease N Rheumatoid Arthritis N Foot Deformity N Fibromyalgia N Kidney Disease N Heart Problems N Pain Medication Contract N Hospitalizations N Artificial Joints Y Thyroid Problems N Anemia N Back Pain N Ulcers N Heart Attack (MA) N Diabetes N Bleeding Disorder N Tuberculosis N AIDS/HIV N Congestive Heart Failure (CHF) N Hyperlipidemia N Asthma N Peripheral Vascular Disease N Epilepsy/Seizures N Sleep Apnea Y Hepatitis N Neuropathy N Heart Disease N Pulmonary Embolism N Hypertension N Osteoporosis N Gynecological HistoryNo gynecological history recorded. Obstetrics History GPAL:G 0 P 0 0 0 0 Past Encounters Encounter ID Performer Location Encounter Start Date Encounter Closed Date Diagnosis/Indication Diagnosis SNOMED-CT Code Diagnosis ICD10 Code Diagnosis Note [id number] Robert Santiago MD [facility] [address] [place] [address] 09/15/2024 16:04:46 09/15/2024 17:32:33 Pain of right knee joint 5513695115 99095 M25.561 Tendinitis of right patellar tendon 0612288333 58419 M76.51 Iliotibial band friction syndrome 542974561 M76.31 Health Concerns Section Related Observation LastModified by Organization Detai ls LastModified Time None Recorded Concern Status LastModified by Organization Details LastModified Time None Recorded Advance Directives Directive Y: Payers Encounter Date Sequence Insurance Name Policy Number Policy Garcia Covered Member ID Garcia Member ID Guarantor Name 09/15/2024 2 [place] [facility] [employer] (PPO) [id number] Alexandra Wheeler [id number] Alexandra Weheler 09/15/2024 1 [place] Alexandra Wheeler [id number] Alexandra Wheeler Notes Date Note Type Note Provider Name and Address Organization Details Recorded Time 09/15/2024 text/html Patient is a 64 year old, right handed female who presents for PRIMARY complaint of left knee.; Patient reports pain is not due to injury. Patient presents with pain. On a scale of 0-10 where 0=no pain and 10=worst possible pain, patient reports a pain scale of 3. Patient describes pain as continuous. Increasing factors include activity. Decreasing factors include none worth reporting. The pain timing is intermittent. Patients severe restrictions involve prolonged walking.; Patient has been treated by Jonna Christopher (Primary Care); Patient reported no tests or studies.; Patient reported no treatments. Alexandra 64 year old female who has had a left TKA in 2014 with a poly exchange in 2016 due to instability, she has also has a right medial uni in 2012. She is complaining pain anteriorly and laterally. The pain is located at the distal pole of the patella over the insertion of the patellar tendon. The lateral pain is over the distal IT band insertion. 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 Robert Santiago MD [address], [place], [address], [facility] 09/28/2024 14:03:56 OBGyn Episode No OBEpisode recorded.
== END 2024-12-05 11:04 | disposition home or self-care (01) ==
PROVIDERS: Emergency Provider Nurse Practitioner
DX: J30.2 Other seasonal allergic rhinitis (principal)
CPT/HCPCS: 99211; G0463